=== PATIENT | male | born 2000 | race African-American/Black ===

== ENCOUNTER 2020-03-30 14:13 | Emergency (ER) | payer MEDICAID, OTHER ==
[~2020-03-30] VITALS: Ht 182.9 cm; Wt 73.0 kg
[2020-03-30] MEDS ORDERED: KETOROLAC 30MG/ML VIAL IV ONE (16:00)
[2020-03-30 16:06] LABS: BASOPHILS % 0.4 % (0.0-2.0); EOSINOPHILS % 0.4 % (0.0-5.0); HEMATOCRIT. 45.1 % (42.0-52.0); HEMOGLOBIN. 15.4 g/dL (14.0-18.0); MEAN CORPUSCULAR HEMOGLOBIN 27.6 pg (28.0-32.0); MEAN CORPUSCULAR VOLUME 80.5 fL (80.0-94.0); MEAN PLATELET VOLUME 10.1 fl (7.4-10.4); NEUTROPHILS % 61.2 % (40.0-76.0); PLATELET 130 x1000/uL (130-400)
[2020-03-30 16:12] LABS: CHLORIDE 110 mEq/L (98-107)
[2020-03-30 17:01] VITALS: BP 126/77
== END 2020-03-30 17:40 | disposition home or self-care (01) ==
LOC: ER 14:13
DX: R07.89 Other chest pain (principal); R06.02 Shortness of breath; F17.290 Nicotine dependence, other tobacco product, uncomplicated; Z98.890 Other specified postprocedural states
CPT/HCPCS: 36415; 71045; 80053; 84484; 85025; 93005; 96374; 99285; J1885